=== PATIENT | male | born 1990 | race African-American/Black ===

== ENCOUNTER 2021-05-19 14:02 | Emergency (ER) | payer OTHER ==
[~2021-05-19] VITALS: Ht 175.3 cm; Wt 71.2 kg
== END 2021-05-19 20:53 | disposition home or self-care (01) ==
LOC: ER 14:02
DX: S20.212A Contusion of left front wall of thorax, initial encounter (principal); W18.09XA Striking against other object with subsequent fall, initial encounter; Y93.89 Activity, other specified; Y92.89 Other specified places as the place of occurrence of the external cause; Y99.8 Other external cause status